=== PATIENT | male | born 1955 | race Caucasian/White ===

== ENCOUNTER 2024-03-15 12:36 | Emergency (ER) | payer MEDICARE, SELFPAY ==
[2024-03-15] VITALS (21 sets, daily range): BP systolic 163–206; BP diastolic 77–94; PULSE 45–58; RESP 12–30; TEMP 36.3–36.6; O2SAT 98–99; BMI 26.4
--- NOTE | 2024-03-15 12:56 | DI.RAD.S_ITS ---
PROCEDURE: XR CHEST 1V INDICATIONS: chest pain TECHNIQUE: One view of the chest was acquired. COMPARISON: None. FINDINGS: Surgical changes and devices: None. Lungs and pleura: Lungs are clear. No pleural effusions or pneumothorax. Mediastinum: Mediastinal contours appear normal. Heart size is normal. Bones and chest wall: No suspicious bony lesions. Overlying soft tissues appear unremarkable. IMPRESSION: No acute cardiopulmonary abnormality is seen. Approved by: Kole Gonzalez M.D. on 03/15/2024 at 13:29
--- NOTE | 2024-03-15 13:05 | EKG_ITS ---
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
[2024-03-15 13:13] LABS: Add Manual Diff / Slide Review NO; Basophils Absolute Auto 0 /uL (0-100); Basophils Percent Auto 0.4 % (0-2); Eosinophils Absolute Auto 100 /uL (0-450); Eosinophils Percent Auto 1.5 % (2-4); Hematocrit 43.3 % (41-53); Hemoglobin 14.3 g/dL (13.5-17.5); Lymphocytes Absolute Auto 1200 /uL (1100-4500); Mean Corpuscular HGB Conc 33.1 % (30-36); Mean Corpuscular Volume 90.5 fL (80-100); Monocytes Absolute Auto 500 /uL (0-900); Monocytes Percent Auto 9.7 % (3-14); Neutrophils Absolute Auto 3700 /uL (1500-7000); Neutrophils Percent Auto 66.4 % (50-75); Platelet Count 235 X10^3/uL (150-400); Red Blood Cell Count 4.79 X10^6/uL (4.5-5.9); Red Cell Distribution Width 14.4 % (11.6-14.8); White Blood Cell Count 5.6 X10^3/uL (4.5-11.0)
[2024-03-15 13:21] LABS: INR 1.1 (0.9-1.3); Prothrombin Time 12.8 SECONDS (9.4-12.5)
[2024-03-15 13:23] LABS: PTT Partial Thromboplastin Tim 35 SECONDS (25.1-36.5)
[2024-03-15 13:24] LABS: Alanine Aminotransferase 24 IU/L (<50); Albumin 4.3 g/dL (3.5-5.0); Albumin Globulin Ratio 1.4 (1.0-2.8); Alkaline Phosphatase 59 U/L (38-126); Aspartate Aminotransferase 26 IU/L (17-59); BUN Creatinine Ratio 16.7 (6-22); Bilirubin Total 0.6 mg/dL (0.2-1.3); Blood Urea Nitrogen 16 mg/dL (9-20); Calcium 9.1 mg/dL (8.4-10.2); Carbon Dioxide 29 mmol/L (22-32); Chloride 108 mmol/L (98-107); Creatine Kinase 85 U/L (55-170); Estimated Glomerular Filt Rate > 60 mL/min (>60); Globulin 3.1 g/dL (1.7-4.1); Glucose 109 mg/dL (80-110); HEMOLYSIS < 15 (0-50); Lipase 42 U/L (23-300); Magnesium 2.1 mg/dL (1.6-2.3); Sodium 140 mmol/L (137-145); Total Protein 7.4 g/dL (6.3-8.2)
[2024-03-15 13:36] LABS: NT-proBNP (BNP-Adult 18+) 200 pg/mL (<125); Troponin I < 0.012 ng/mL (0.01-0.034)
--- NOTE | 2024-03-15 13:46 | ED.GENADULT ---
HPI - General Adult General Chief complaint: Dizziness Stated complaint: heavy feeling in chest, vertigo Time Seen by Provider: 03/15/24 13:10 Source: patient Mode of arrival: Ambulatory History of Present Illness HPI narrative: Patient is a 68-year-old male who for the past several weeks has had occasional episodes of vague symptoms to include heaviness in his chest and lightheadedness. He states that the symptoms last a minute or so but then he has some persistent lightheadedness for about 30 minutes afterwards and then completely resolved. Last weekend he was seen at an outside facility where he states he would labs performed. Was eventually discharged home. Was told to come back in a couple days for a ?CT scan? he was read this and thought that it was to come back for another EKG. They went out on this elbow. Today his symptoms have been more persistent and he had had some heaviness in his chest this morning which prompted them to come to the emergency department today. He does report some tingling in his upper extremities. No abdominal pain. Some nausea this morning that has resolved. No sore throat. No headache. Related Data Allergies Allergy/AdvReac Type Severity Reaction Status Date / Time No Known Drug Allergies Allergy Verified 03/15/24 12:51 Review of Systems Review of Systems Narrative: See HPI ROS Unobtainable: All systems reviewed & are unremarkable except as noted in HPI and below Patient History Social History Smoking Status: Never smoker Smoking Status: Never smoker alcohol intake frequency: holidays/special occasions only Substance Use Type: does not use Exam Initial Vital Signs Initial Vital Signs: Vital Signs Temperature 97.9 F 03/15/24 12:44 Pulse Rate 52 L 03/15/24 12:44 Respiratory Rate 16 03/15/24 12:44 Blood Pressure 172/82 H 03/15/24 12:44 Pulse Oximetry 99 03/15/24 12:44 Oxygen Delivery Method Room Air 03/15/24 12:44 Const General: cooperative, comfortable and No ill appearing HENAR Head: normal to inspection and normocephalic Resp Effort & Inspection: normal respiratory effort Auscultation: clear to auscultation bilaterally Cardio Rate: regular rate Rhythm: regular rhythm GI Inspection: normal to inspection and non-distended Skin General: no rashes or lesions noted Neuro General: patient alert, patient awake, patient oriented x3 and moves all extremities Cognition: normal cognition Speech: speech normal Motor: muscle tone normal throughout Extrem General: normal to inspection and capillary refill normal Course Orders Ordered: ED Orders 03/15/24 12:56 XR chest 1V Stat EKG-12 Lead Stat 03/15/24 13:04 Complete Blood Count AUTO DIFF Stat Comprehensive Metabolic Panel Stat Lipase Stat Magnesium Stat NT-proBNP (BNP-Adult 18+) Stat PTT Partial Thromboplastin Gurpreet Stat Prothrombin Time INR Stat Troponin & CK Cardiac Panel Stat 03/15/24 13:50 CT head/brain wo con Stat 03/15/24 15:07 Troponin & CK Cardiac Panel Stat Discontinued Medications Aspirin (Aspirin 81 Mg Chew Tab) 324 mg PO NOW ONE Stop: 03/15/24 12:57 Vital Signs Vital signs: Vital Signs - 8 hr 03/15/24 12:44 03/15/24 12:54 03/15/24 13:00 Temperature 97.9 F Pulse Rate 52 L 58 L 56 L Respiratory Rate 16 Blood Pressure 172/82 H Pulse Oximetry 99 99 99 Oxygen Delivery Method Room Air 03/15/24 13:08 03/15/24 13:08 03/15/24 13:30 Temperature Pulse Rate 53 L Respiratory Rate 22 Blood Pressure 173/84 H 192/84 H Pulse Oximetry 99 Oxygen Delivery Method 03/15/24 13:30 03/15/24 14:00 03/15/24 14:01 Temperature Pulse Rate 53 L 48 L Respiratory Rate 23 Blood Pressure 170/77 H Pulse Oximetry 98 98 Oxygen Delivery Method 03/15/24 14:01 03/15/24 14:15 03/15/24 14:15 Temperature Pulse Rate 47 L 52 L Respiratory Rate 30 H 18 Blood Pressure 187/84 H Pulse Oximetry 99 99 Oxygen Delivery Method 03/15/24 14:30 03/15/24 14:31 03/15/24 14:31 Temperature Pulse Rate 53 L 52 L Respiratory Rate Blood Pressure 200/94 H Pulse Oximetry 99 99 Oxygen Delivery Method 03/15/24 14:35 03/15/24 14:35 03/15/24 15:00 Temperature Pulse Rate 54 L 52 L Respiratory Rate Blood Pressure 206/84 H Pulse Oximetry 99 98 Oxygen Delivery Method 03/15/24 15:01 03/15/24 15:01 03/15/24 15:30 Temperature Pulse Rate 53 L 48 L Respiratory Rate 12 Blood Pressure 163/77 H Pulse Oximetry 99 99 Oxygen Delivery Method 03/15/24 15:30 03/15/24 16:00 03/15/24 16:01 Temperature Pulse Rate 50 L Respiratory Rate 17 Blood Pressure 170/78 H 171/80 H Pulse Oximetry 98 Oxygen Delivery Method 03/15/24 16:01 03/15/24 16:30 03/15/24 16:31 Temperature Pulse Rate 48 L 52 L 50 L Respiratory Rate 17 Blood Pressure Pulse Oximetry 98 99 99 Oxygen Delivery Method 03/15/24 16:31 03/15/24 17:00 03/15/24 17:01 Temperature Pulse Rate 45 L Respiratory Rate Blood Pressure 187/84 H 173/78 H Pulse Oximetry Oxygen Delivery Method 03/15/24 17:01 03/15/24 17:35 Temperature 97.3 F L Pulse Rate 46 L 51 L Respiratory Rate 16 Blood Pressure 173/78 H Pulse Oximetry 99 Oxygen Delivery Method Room Air Medical Decision Making Lab Data Lab results reviewed: Yes I reviewed the patient's lab results. 03/15/24 13:04 03/15/24 13:04 Labs: Lab Results 03/15/24 03/15/24 Range/Units 13:04 15:07 WBC 5.6 (4.5-11.0) X10^3/uL RBC 4.79 (4.5-5.9) X10^6/uL Hgb 14.3 (13.5-17.5) g/dL Hct 43.3 (41-53) % MCV 90.5 (80-100) fL MCH 30.0 (26-34) PG MCHC 33.1 (30-36) % RDW 14.4 (11.6-14.8) % Plt Count 235 (150-400) X10^3/uL Neut % (Auto) 66.4 (50-75) % Lymph % (Auto) 22.0 L (25-40) % [place] % (Auto) 9.7 (3-14) % Eos % (Auto) 1.5 L (2-4) % Baso % (Auto) 0.4 (0-2) % Neut # (Auto) 3700 (3461-3823) /uL Lymph # (Auto) 1200 (9292-7699) /uL [place] # (Auto) 500 (0-900) /uL Eos # (Auto) 100 (0-450) /uL Baso # (Auto) 0 (0-100) /uL PT 12.8 H (9.4-12.5) SECONDS INR 1.1 (0.9-1.3) APTT 35 (25.1-36.5) SECONDS Sodium 140 (137-145) mmol/L Potassium 4.0 (3.4-5.1) mmol/L Chloride 108 H (98-107) mmol/L Carbon Dioxide 29 (22-32) mmol/L BUN 16 (9-20) mg/dL Creatinine 0.96 (0.66-1.25) mg/dL Estimated GFR > 60 (>60) mL/min BUN/Creatinine Ratio 16.7 (6-22) Glucose 109 (80-110) mg/dL Calcium 9.1 (8.4-10.2) mg/dL Magnesium 2.1 (1.6-2.3) mg/dL Total Bilirubin 0.6 (0.2-1.3) mg/dL AST 26 (17-59) IU/L ALT 24 (<50) IU/L Alkaline Phosphatase 59 (38-126) U/L Total Creatine Kinase 85 79 (55-170) U/L Troponin I < 0.012 < 0.012 (0.01-0.034) ng/mL NT-Pro-B Natriuret Pep 200 H (<125) pg/mL Total Protein 7.4 (6.3-8.2) g/dL Albumin 4.3 (3.5-5.0) g/dL Globulin 3.1 (1.7-4.1) g/dL Albumin/Globulin Ratio 1.4 (1.0-2.8) Lipase 42 (23-300) U/L Imaging Data Chest x-ray: Radiologist's Impression: PROCEDURE: XR CHEST 1V INDICATIONS: chest pain TECHNIQUE: One view of the chest was acquired. COMPARISON: None. FINDINGS: Surgical changes and devices: None. Lungs and pleura: Lungs are clear. No pleural effusions or pneumothorax. Mediastinum: Mediastinal contours appear normal. Heart size is normal. Bones and chest wall: No suspicious bony lesions. Overlying soft tissues appear unremarkable. IMPRESSION: No acute cardiopulmonary abnormality is seen. CT scan - head: Radiologist's Impression: PROCEDURE: CT HEAD/BRAIN WO CON INDICATIONS: Unsteadiness, dizziness TECHNIQUE: Noncontrast 4.5 mm thick angled axial sections acquired from the foramen magnum to the vertex, with coronal and sagittal reformats. For radiation dose reduction, the following was used: automated exposure control, adjustment of mA and/or kV according to patient size. COMPARISON: None. FINDINGS: Image quality: Diagnostic. CSF spaces: Basal cisterns are patent. No extra-axial fluid collections. The ventricles are symmetric in size and shape. Brain: No intracranial bleeds or masses. There is mild cerebral volume loss for age, with resultant ventricular and sulcal prominence. There are minimal periventricular and deep white matter chronic small vessel ischemic changes. There is intracranial internal carotid artery atherosclerosis. Skull and face: Calvarium and visualized facial bones appear intact, without suspicious lesions. Sinuses: Partial opacification of the ethmoid air cells and the left sphenoid sinus. Mastoid air cells are clear. IMPRESSION: No acute intracranial pathology. ECG Data Attestation: I personally reviewed and interpreted this ECG as follows: Interpretation: Sinus rhythm Bradycardic with a rate of 51 Normal axis Normal QRS Normal QTC No ST T wave changes MDM Narrative Medical decision making narrative: Patient has 2- troponins and a nonischemic EKG. Has been bradycardic on the monitor and also on his EKG. This did improve when he exerted himself. He became somewhat lightheaded with walking to the bathroom but certainly was not at a point where he was going to pass out. He was a follow-up with her primary doctor already scheduled for tomorrow. Electrolytes are unremarkable. Low suspicion for ACS, CVA, TIA. No source of infection found. Will discharge patient home with follow-up with his primary doctor tomorrow to discuss the indications for Holter monitor and echocardiogram of potential referral to see Cardiology. They were given return precautions. He expressed understanding and agreement. Discharge Plan Departure Patient Disposition: Home Clinical Impression: Bradycardia, Hypertension Instructions: DI for Bradycardia Activity Restrictions/Additional Instructions: Recommend that you keep your appointment that she was scheduled with the primary doctor tomorrow and talk with your primary doctor about the referral for a echocardiogram and Holter monitor. You can also discuss the indications for referral to see Cardiology. Return to the emergency department for new or worsening symptoms. Stand Alone Forms: Patient Portal/API
--- NOTE | 2024-03-15 13:50 | DI.CT.S_ITS ---
PROCEDURE: CT HEAD/BRAIN WO CON INDICATIONS: Unsteadiness, dizziness TECHNIQUE: Noncontrast 4.5 mm thick angled axial sections acquired from the foramen magnum to the vertex, with coronal and sagittal reformats. For radiation dose reduction, the following was used: automated exposure control, adjustment of mA and/or kV according to patient size. COMPARISON: None. FINDINGS: Image quality: Diagnostic. CSF spaces: Basal cisterns are patent. No extra-axial fluid collections. The ventricles are symmetric in size and shape. Brain: No intracranial bleeds or masses. There is mild cerebral volume loss for age, with resultant ventricular and sulcal prominence. There are minimal periventricular and deep white matter chronic small vessel ischemic changes. There is intracranial internal carotid artery atherosclerosis. Skull and face: Calvarium and visualized facial bones appear intact, without suspicious lesions. Sinuses: Partial opacification of the ethmoid air cells and the left sphenoid sinus. Mastoid air cells are clear. IMPRESSION: No acute intracranial pathology. Approved by: Kole Gonzalez M.D. on 03/15/2024 at 15:03
[2024-03-15 15:34] LABS: Creatine Kinase 79 U/L (55-170)
[2024-03-15 15:47] LABS: Troponin I < 0.012 ng/mL (0.01-0.034)
== END 2024-03-15 17:37 | disposition home or self-care (01) ==
PROVIDERS: Emergency Provider Emergency Medicine
DX: R00.1 Bradycardia, unspecified (principal); I10 Essential (primary) hypertension; R42 Dizziness and giddiness
CPT/HCPCS: 36415; 70450; 71045; 80053; 82550; 83690; 83735; 83880; 84484; 85025; 85610; 85730; 93005; 93010; 99284